=== PATIENT | female | born 1955 | race Caucasian/White ===

== ENCOUNTER 2021-11-16 06:17 | Day surgery (SDC) | payer MEDICARE, OTHER ==
[~2021-11-16] VITALS: Ht 160 cm; Wt 49.0 kg
[~2021-11-16 06:17] MED LIST: ALBU90OI INH; ASPI81CH PO; Amlodipine Bes2.5 MG PO; OMEP20ER PO
--- NOTE | 2021-11-16 06:42 | NUR ---
INSPIRATORY RHONCHI AUSCULTATED TO UPPER RIGHT LOBE, ANTERIOR AND POSTERIOR. NO WHEEZING NOTED. PATIENT STATES SHE IS NOT SOB TODAY.
--- NOTE | 2021-11-16 06:43 | NUR ---
Patient confirms NPO status and agrees with scheduled surgery. History, Chart, Medications and Allergies reviewed before start of procedure. Patient States Post-Procedure ride home has been arranged with her , Loco.
--- NOTE | 2021-11-16 08:03 | NUR ---
11/16/21 0802 Casi Edwards 2% LIDOCAINE JELLY WITH 5 DROPS SKYLAR-SYNEPHRINE 0.5% APPLIED TO BILATERAL NARES WITH COTTON TIP APPLICATOR. 2% LIDOCAINE SOLUTION SPRAYED TO OROPHARYNX USING ATOMIZATION DEVICE UNTIL GAG REFLEX GONE.
--- NOTE | 2021-11-16 08:55 | NUR ---
PATIENT SITTIN G UP IN [facility]. SUPPLEMENTAL O2 REMOVED. WILL MONITOR FOR DESATURATION. BIOX 100%. PATIENT COUGHING PRODUCTIVE COUGH. DENIES PAIN. NO C/O VERBALIZED.
--- NOTE | 2021-11-16 10:06 | NUR ---
UP TO BR WITH STEADY GAIT. STAND BY ASSIST.
--- NOTE | 2021-11-16 10:08 | NUR ---
DENIES SOB OR PAIN. NO C/O VERBALIZED. COUGHING LESS FREQUENT. RESP EVEN AND UNLABORED. BREATHING RA.
--- NOTE | 2021-11-16 10:20 | NUR ---
DENTURES RETURNED TO PATIENT.
--- NOTE | 2021-11-16 10:29 | NUR ---
GAG REFLEX PRESENT WITH TONGUE DEPRESSOR. TOLERATING SIPS OF WATER WITHOUT PROBLEMS. CALLED DR DOWELL TO CONFIRM RESTART OF MEDICATIONS, INCLUDING ASPIRIN. OK PER DR LAKE TO RESUME TODAY.
== END 2021-11-16 10:36 | disposition home or self-care (01) ==
LOC: ORSCMMR 06:17
PROVIDERS: Internal Medicine Critical Care Medicine
PROC: 0BB88ZX Excision of Left Upper Lobe Bronchus, Via Natural or Artificial Opening Endoscopic, Diagnostic (ICD-10-PCS; principal; 2021-11-16 08:00)
DX: R91.8 Other nonspecific abnormal finding of lung field (principal); C34.12 Malignant neoplasm of upper lobe, left bronchus or lung; J44.9 Chronic obstructive pulmonary disease, unspecified; F17.210 Nicotine dependence, cigarettes, uncomplicated; Z86.16 Personal history of COVID-19; Z79.82 Long term (current) use of aspirin; Z79.899 Other long term (current) drug therapy
CPT/HCPCS: 88305; 88342; A9270; J0171; J2001; J2704; J7120

== ENCOUNTER 2021-12-29 07:31 | Day surgery (SDC) | payer MEDICARE, OTHER ==
[~2021-12-29] VITALS: Ht 160 cm; Wt 49.0 kg
[~2021-12-29 07:31] MED LIST changes: +COMPAZINE10 MG PO; +IBUP600 PO; +VITAMIN D310 MC4 PO
--- NOTE | 2021-12-29 10:31 | NUR ---
up to bathroom called son gerardo to let him know she has not gone into surgery yet due to emergency surgery bumping hers.
--- NOTE | 2021-12-29 13:10 | NUR ---
1307-MEDIPORT PLACEMENT GOOD PER DR. BRADSHAW
--- NOTE | 2021-12-29 13:55 | NUR ---
Discharge instructions reviewed with patient. Patient verbalizes understanding. Copy given to patient to take home. Dressing to procedure site clean, dry, intact with no visible drainage, swelling, erythema or bruising noted. Discharged via wheelchair to private car for ride home.
== END 2021-12-29 23:32 | disposition home or self-care (01) ==
LOC: ORSCMMR 07:31 → ORD 09:00 → ORSCMMR 23:32
PROVIDERS: Surgery
PROC: B543ZZA Ultrasonography of Right Jugular Veins, Guidance (ICD-10-PCS; principal; 2021-12-29 09:00)
PROC: 05HM33Z Insertion of Infusion Device into Right Internal Jugular Vein, Percutaneous Approach (ICD-10-PCS; principal; 2021-12-29 09:00)
DX: C34.90 Malignant neoplasm of unspecified part of unspecified bronchus or lung (principal); I10 Essential (primary) hypertension; F17.210 Nicotine dependence, cigarettes, uncomplicated; K21.9 Gastro-esophageal reflux disease without esophagitis; Z86.16 Personal history of COVID-19; Z79.899 Other long term (current) drug therapy
CPT/HCPCS: 77001; C1788; J0690; J1100; J1642; J2001; J2250; J2370; J2405; J2704; J3010; J7120

== ENCOUNTER → 2022-05-10 | Outpatient (CLI) | payer BC, MEDICARE ==
[2022-05-10 15:07] LABS: Free Thyroxine 1.17 ng/dL (0.70-1.60)
[2022-05-10 15:09] LABS: Thyroid Stimulating Hormone 0.801 uIU/mL (0.360-4.800); Triiodothyronine, Free 1.96 pg/mL (2.18-3.98)
== END | disposition home or self-care (01) ==
LOC: LAB SHORT 14:05 → LAB 14:05
PROVIDERS: Nurse Practitioner
DX: C34.90 Malignant neoplasm of unspecified part of unspecified bronchus or lung (principal); R61 Generalized hyperhidrosis
CPT/HCPCS: 84439; 84443; 84481

== ENCOUNTER 2023-01-05 12:37 | Emergency (ER) | payer BC, MEDICARE ==
[~2023-01-05] VITALS: Ht 160 cm; Wt 47.6 kg
[2023-01-05 14:51] LABS: Albumin/Globulin Ratio 0.6 (0.8-1.8); Bilirubin, Total 0.6 mg/dL (0.1-1.0); Bun/Creatinine Ratio 21.5 (12.0-20.0); Calcium, Blood 7.6 mg/dL (8.5-10.1); Creatinine, Blood 0.51 mg/dL (0.40-1.00); Globulin, Blood 3.1 g/dL (2.2-4.0); Total Protein, Blood 5.1 g/dL (6.4-8.2)
[2023-01-05] MEDS ORDERED: OMEP20ER PO (18:54)
[2023-01-05 22:00] VITALS: BP 125/72
== END 2023-01-05 22:30 | disposition home or self-care (01) ==
LOC: ER 12:37
PROVIDERS: Physician Assistant
DX: D64.81 Anemia due to antineoplastic chemotherapy (principal); E87.6 Hypokalemia; T45.1X5A Adverse effect of antineoplastic and immunosuppressive drugs, initial encounter; X58.XXXA Exposure to other specified factors, initial encounter; F17.200 Nicotine dependence, unspecified, uncomplicated; Z88.5 Allergy status to narcotic agent; Z79.51 Long term (current) use of inhaled steroids; Z79.1 Long term (current) use of non-steroidal anti-inflammatories (NSAID); Z79.899 Other long term (current) drug therapy
CPT/HCPCS: 36430; 80053; 86850; 86900; 86901; 86923; 96374; 99283-25; A9270; J1642; J7030; P9016

== ENCOUNTER → 2023-01-05 | Outpatient (CLI) | payer BC, MEDICARE ==
[2023-01-05 12:04] LABS: Hematocrit 18.1 % (33.0-51.0); Mean Corpuscular HGB 32.4 pg (26.0-34.0); Mean Corpuscular HGB Conc 33.1 g/dL (31.5-36.5); Mean Corpuscular Volume 98 fL (80-100); Platelet Count 64 K/mm3 (150-400); RDW Coefficient Variation 19.4 % (11.7-14.2); RDW Standard Deviation 68.4 fL (35.1-46.3); Red Blood Cell Count 1.85 M/mm3 (3.80-5.20)
[2023-01-05 12:23] LABS: Albumin, Blood 2.1 g/dL (3.4-5.0); Albumin/Globulin Ratio 0.5 (0.8-1.8); Bilirubin, Total 0.8 mg/dL (0.1-1.0); Bun/Creatinine Ratio 19.6 (12.0-20.0); Calcium, Blood 8.1 mg/dL (8.5-10.1); Creatinine, Blood 0.56 mg/dL (0.40-1.00); Globulin, Blood 3.9 g/dL (2.2-4.0); Potassium, Blood 3.6 mmol/L (3.5-5.5)
[2023-01-05 12:25] LABS: BAND PERCENT MAN 12 % (0-8); BASOPHILS PERCENT MAN 0 % (0-2); EOSINOPHILS PERCENT MAN 0 % (0-6); LYMPHOCYTES ABSOLUTE MAN 0.21 K/mm3 (0.84-5.20); LYMPHOCYTES PERCENT MAN 8 % (21-46); MONOCYTES ABSOLUTE MAN 0.16 K/mm3 (0.16-1.47); MONOCYTES PERCENT MAN 6 % (4-13); NEUTROPHILS ABSOLUTE MAN 2.32 K/mm3 (1.96-9.15); SEG NEUTROPHILS PERCENT MAN 74 % (41-73); TOTAL CELLS COUNTED 100
== END | disposition home or self-care (01) ==
LOC: LAB 11:12 → LAB SHORT 11:12
PROVIDERS: Internal Medicine Hematology & Oncology
DX: C34.90 Malignant neoplasm of unspecified part of unspecified bronchus or lung (principal)
CPT/HCPCS: 80053; 85025

== ENCOUNTER 2023-02-25 09:10 | Inpatient (IN) | payer BC, MEDICARE ==
[~2023-02-25] VITALS: Ht 160 cm; Wt 43.9 kg
[2023-02-25] VITALS (30 sets, daily range): BP systolic 91–134; BP diastolic 48–80
[2023-02-25 10:24] LABS: Mean Corpuscular HGB 32.6 pg (26.0-34.0); Mean Corpuscular Volume 105 fL (80-100); Mean Platelet Volume 10.1 fL (9.1-12.4); NRBC ABSOLUTE 0.04 K/mm3 (0.00-0.02); NRBC Auto 0.2 /100 WBC (0.0-0.2); Platelet Count 205 K/mm3 (150-400); RDW Coefficient Variation 22.8 % (11.7-14.2); RDW Standard Deviation 87.4 fL (35.1-46.3); Red Blood Cell Count 2.76 M/mm3 (3.80-5.20)
[2023-02-25 10:39] LABS: International Normalized Ratio 1.1; Prothrombin Time Results 11.5 Sec (9.7-11.5)
[2023-02-25 10:50] LABS: BAND PERCENT MAN 10 % (0-8); BASOPHILS PERCENT MAN 0 % (0-2); EOSINOPHILS PERCENT MAN 0 % (0-6); LYMPHOCYTES PERCENT MAN 28 % (21-46); MONOCYTES ABSOLUTE MAN 1.05 K/mm3 (0.16-1.47); MONOCYTES PERCENT MAN 6 % (4-13); MYELOCYTE ABSOLUTE MAN 0.35 K/mm3 (0.00-0.00); MYELOCYTE PERCENT MAN 2 % (0-0); SEG NEUTROPHILS PERCENT MAN 54 % (41-73); TOTAL CELLS COUNTED 100
[2023-02-25 10:51] LABS: Albumin, Blood 2.4 g/dL (3.4-5.0); Albumin/Globulin Ratio 0.6 (0.8-1.8); Bilirubin, Total 0.6 mg/dL (0.1-1.0); Bun/Creatinine Ratio 21.2 (12.0-20.0); Calcium, Blood 8.6 mg/dL (8.5-10.1); Creatinine, Blood 0.66 mg/dL (0.40-1.00); Globulin, Blood 3.8 g/dL (2.2-4.0); Potassium, Blood 4.7 mmol/L (3.5-5.5); Thyroid Stimulating Hormone 2.39 uIU/mL (0.360-4.800); Total Protein, Blood 6.2 g/dL (6.4-8.2)
[2023-02-25 13:10] LABS: Influenza A, PCR NEGATIVE (NEGATIVE); Influenza B, PCR NEGATIVE (NEGATIVE); Resp Syncytial Virus, PCR NEGATIVE (NEGATIVE); SARS-Cov-2 (COVID-19) PCR, MMC NEGATIVE (NEGATIVE)
[2023-02-25 15:01] LABS: Hemoglobin 7.7 g/dL (11.5-16.0)
[2023-02-25] MEDS ORDERED: TRAM50 PO (15:19)
[2023-02-25] MEDS ORDERED: DECADRON4 M1 PO (15:20)
--- NOTE | 2023-02-25 16:36 | NUR ---
ADMIT PT ARRIVED TO ICU 7 AT 1441. PT ALERT AND ORIENTED. PT STARTED COUGHING UP A MODERATE AMT OF BRIGHT RED BLOOD MIXED WITH SPUTUM AFTER SHE WAS MOVED FROM THE ED GURNEY TO THE ICU BED. PT STATES THAT SHE HAS NOT COUGHED ANY BLOOD UP SINCE SHE HAS BEEN IN THE ED. DR. PATTON NOTIFIED. COUGHING HAD SLOWED DOWN ONCE DR. PATTON WAS AT THE BEDSIDE. PT POSITIONED ON HER L SIDE AND DR. PATTON GAVE RT ORDERS FOR TXA NEBS. PT'S SPO2 REMAINS 95% ON RA. HR 130S, SBP 90 TO LOW 100S. PT'S AT THE BEDSIDE AND WAS UPDATED BY NURSING STAFF AND DR. PATTON. CONTINUING TO MONITOR.
[2023-02-25 19:00] LABS: Hematocrit 21.7 % (33.0-51.0); Hemoglobin 6.9 g/dL (11.5-16.0); Mean Corpuscular HGB 32.4 pg (26.0-34.0); Mean Corpuscular HGB Conc 31.8 g/dL (31.5-36.5); Mean Corpuscular Volume 102 fL (80-100); Mean Platelet Volume 10.4 fL (9.1-12.4); Platelet Count 116 K/mm3 (150-400); RDW Coefficient Variation 22.3 % (11.7-14.2); RDW Standard Deviation 82.3 fL (35.1-46.3); Red Blood Cell Count 2.13 M/mm3 (3.80-5.20); White Blood Cell Count 5.46 K/mm3 (4.00-11.30)
--- NOTE | 2023-02-25 19:07 | NUR ---
ASSUMED CARE OF PT AT 1900 PT RESTING IN BED ON LEFT SIDE PER DR ORDERS. NO VISITORS IN ROOM. BEDSIDE SHIFT REPORT RECVD FROM ABDOULAYE SEGOVIA. VSS PT ON BED PRECIADO AFTER REPORT DONE. NS @50 MLS/HR AT THIS TIME. SEE FULL ASSESSMENT FOR FURTHER INFORMATION.
[2023-02-25 19:45] LABS: BAND PERCENT MAN 43 % (0-8); BASOPHILS PERCENT MAN 0 % (0-2); EOSINOPHILS PERCENT MAN 0 % (0-6); LYMPHOCYTES ABSOLUTE MAN 0.16 K/mm3 (0.84-5.20); LYMPHOCYTES PERCENT MAN 3 % (21-46); MONOCYTES ABSOLUTE MAN 0.05 K/mm3 (0.16-1.47); MONOCYTES PERCENT MAN 1 % (4-13); MYELOCYTE ABSOLUTE MAN 0.05 K/mm3 (0.00-0.00); MYELOCYTE PERCENT MAN 1 % (0-0); NEUTROPHILS ABSOLUTE MAN 5.18 K/mm3 (1.96-9.15); SEG NEUTROPHILS PERCENT MAN 52 % (41-73); TOTAL CELLS COUNTED 100
[2023-02-25 21:57] LABS: Hematocrit 27.8 % (33.0-51.0)
[2023-02-26] VITALS (25 sets, daily range): BP systolic 98–150; BP diastolic 56–82
[2023-02-26 01:21] LABS: Hematocrit 26.9 % (33.0-51.0); Hemoglobin 8.8 g/dL (11.5-16.0); Mean Corpuscular HGB 31.9 pg (26.0-34.0); Mean Corpuscular HGB Conc 32.7 g/dL (31.5-36.5); Mean Corpuscular Volume 98 fL (80-100); Mean Platelet Volume 10.1 fL (9.1-12.4); Platelet Count 102 K/mm3 (150-400); RDW Coefficient Variation 21.5 % (11.7-14.2); RDW Standard Deviation 73.4 fL (35.1-46.3); Red Blood Cell Count 2.76 M/mm3 (3.80-5.20); White Blood Cell Count 5.09 K/mm3 (4.00-11.30)
[2023-02-26 01:44] LABS: Albumin, Blood 1.9 g/dL (3.4-5.0); Albumin/Globulin Ratio 0.6 (0.8-1.8); Bilirubin, Total 0.4 mg/dL (0.1-1.0); Bun/Creatinine Ratio 22.2 (12.0-20.0); Calcium, Blood 7.7 mg/dL (8.5-10.1); Creatinine, Blood 0.54 mg/dL (0.40-1.00); Globulin, Blood 3.4 g/dL (2.2-4.0); Potassium, Blood 3.6 mmol/L (3.5-5.5); Total Protein, Blood 5.3 g/dL (6.4-8.2)
[2023-02-26 02:16] LABS: BAND PERCENT MAN 5 % (0-8); BASOPHILS PERCENT MAN 0 % (0-2); EOSINOPHILS PERCENT MAN 0 % (0-6); LYMPHOCYTES ABSOLUTE MAN 0.35 K/mm3 (0.84-5.20); LYMPHOCYTES PERCENT MAN 7 % (21-46); MONOCYTES ABSOLUTE MAN 0.25 K/mm3 (0.16-1.47); MONOCYTES PERCENT MAN 5 % (4-13); NEUTROPHILS ABSOLUTE MAN 4.47 K/mm3 (1.96-9.15); SEG NEUTROPHILS PERCENT MAN 83 % (41-73); TOTAL CELLS COUNTED 100
--- NOTE | 2023-02-26 05:54 | NUR ---
END OF SHIFT SUMMARY PT RESTED ON LEFT SIDE ALL SHIFT WITH INTERMITENT USE OF BED PRECIADO. HEAD OF BED RAISED AT ALL TIMES. MINIMAL COUGHING WITH SCANT PINK TINGED SPUTUM PRESENT. PT STATES " STUFF I AM COUGHING UP IS MUCH CLEARER THAN BEFORE". PT DIAPHORETIC SPIRATICALLY THROUGHOUT THE NIGHT, PT REPORTS THIS IS BASELINE FOR HER. AFEBRILE WITH NO OTHER ISSUES. VSS. SIGNIFICANT DECREASE TO BP AND HR AFTER 1 UNIT PRBC INFUSED. NO OTHER ACUTE CHANGES TO REPORT AT THIS TIME. WILL CONTINUE TO MONITOR PT UNTIL AM RN IS GIVEN REPORT.
[2023-02-26 08:34] LABS: Hematocrit 31.1 % (33.0-51.0); Hemoglobin 10.3 g/dL (11.5-16.0)
--- NOTE | 2023-02-26 11:59 | NUR ---
REASSESSMENT PT REMAINS ALERT AND ORIENTED. SHE SAT UP IN THE CHAIR THIS MORNING FOR A FEW HOURS AND NOW IS BACK IN BED NAPPING. PT STARTS COUGHING WITH ACTIVITY, BRINGING UP A MODERATE AMT OF BLOOD MIXED WITH SPUTUM AT FIRST THAT TURNS MORE CLEAR SHE COUGHS MORE UP. SHE COUGHED UP 1 SMALL CLOT, ABOUT 0.5-1 CM AROUND. CONTINUES ON RA. SR WITH RATE IN THE 90S AT REST, UP TO 1 TEENS WITH ACTIVITY. BP STABLE. GETTING UP TO COMMODE TO VOID. PT'S CAME BY AND WAS UPDATED. CONTINUING TO MONITOR.
[2023-02-26 14:25] LABS: Hematocrit 30.4 % (33.0-51.0)
--- NOTE | 2023-02-26 17:01 | NUR ---
SHIFT SUMMARY PT HAS GONE BETWEEN THE CHAIR AND LAYING IN BED ON HER LEFT SIDE TODAY. SHE IS COUGHING LESS THIS EVENING, BUT WHEN SHE DOES COUGH IT IS STILL RED MIXED WITH SPUTUM. CONTINUES ON RA WITH SPO2 ABOVE 90%. LUNGS COARSE. SINUS TACHY ITH RATE IN THE LOW 100S. BP STABLE. GETTING UP TO THE COMMODE TO VOID. ATE BREAKFAST, BUT ONLY ATE SOME PEACHES AT LUNCH. PT'S UPDATED BY NURSING STAFF.
[2023-02-26 20:35] LABS: Hematocrit 27.1 % (33.0-51.0); Hemoglobin 8.8 g/dL (11.5-16.0)
[2023-02-27] VITALS (15 sets, daily range): BP systolic 121–161; BP diastolic 62–89
--- NOTE | 2023-02-27 06:00 | NUR ---
PT RESTED INTERMITTANTLY DURING NOC, HAS CONT TO DENY SOB AND REMAINS ON RA. CONT TO LAY ON L SIDE. COUGH IS OCCASIONAL, MUCH LESS SECRETIONS, CONT BLOOD TINGED, PT ABLE TO SELF SXN. CONT SR, VSS. PT W SB ASSIST TO BSC TO VOID, ONLY SM AMTS, DENIES PAIN/BURNING W URINATION. CONT TO MONITOR HGB. REPORT TO DAYSHIFT.
[2023-02-27 06:11] LABS: Hematocrit 25.5 % (33.0-51.0); Hemoglobin 8.3 g/dL (11.5-16.0); Mean Corpuscular HGB 31.8 pg (26.0-34.0); Mean Corpuscular HGB Conc 32.5 g/dL (31.5-36.5); Mean Corpuscular Volume 98 fL (80-100); Mean Platelet Volume 10.5 fL (9.1-12.4); Platelet Count 119 K/mm3 (150-400); RDW Coefficient Variation 22.2 % (11.7-14.2); RDW Standard Deviation 76.1 fL (35.1-46.3); Red Blood Cell Count 2.61 M/mm3 (3.80-5.20); White Blood Cell Count 7.71 K/mm3 (4.00-11.30)
[2023-02-27 06:32] LABS: Albumin, Blood 1.9 g/dL (3.4-5.0); Albumin/Globulin Ratio 0.5 (0.8-1.8); Bilirubin, Total 0.2 mg/dL (0.1-1.0); Bun/Creatinine Ratio 38.7 (12.0-20.0); Calcium, Blood 8.3 mg/dL (8.5-10.1); Creatinine, Blood 0.52 mg/dL (0.40-1.00); Globulin, Blood 3.5 g/dL (2.2-4.0); Potassium, Blood 3.7 mmol/L (3.5-5.5); Total Protein, Blood 5.4 g/dL (6.4-8.2)
[2023-02-27 06:53] LABS: BAND PERCENT MAN 12 % (0-8); BASOPHILS PERCENT MAN 0 % (0-2); EOSINOPHILS PERCENT MAN 0 % (0-6); LYMPHOCYTES ABSOLUTE MAN 0.38 K/mm3 (0.84-5.20); LYMPHOCYTES PERCENT MAN 5 % (21-46); MONOCYTES PERCENT MAN 4 % (4-13); NEUTROPHILS ABSOLUTE MAN 7.01 K/mm3 (1.96-9.15); SEG NEUTROPHILS PERCENT MAN 79 % (41-73); TOTAL CELLS COUNTED 100
--- NOTE | 2023-02-27 07:00 | NUR ---
ASSUME CARE: I have assumed care of this patient.
[2023-02-27 10:32] LABS: Hematocrit 28.4 % (33.0-51.0); Hemoglobin 9.1 g/dL (11.5-16.0)
--- NOTE | 2023-02-27 13:29 | NUR ---
TRANSFER: Report given to PCU 20 RN. Pt to be taken over in wheelchair by ATTENDANT HONOR BAR. Pt was just medicated with ultram for port site pain.
--- NOTE | 2023-02-27 13:57 | NUR ---
ASSUME CARE: PT ARRIVED IN THE ROOM FROM ICU 7 REPORT RECEIVED FROM NAOMI SEGOVIA, ACCOMPANIED BY PCT VIA WHEELCHAIR. DAUGHTER IN LAW A TTHE BEDSIDE DURING TRANSFER. PT ABLE TO STAND AND TRANSFER TO THE CHAIR. SUCTION SET UP AT THE BEDSIDE. CALL LIGHTS IN REACH WILL CONTINUE TO MONITOR PT UNTIL END OF SHIFT
--- NOTE | 2023-02-27 18:40 | NUR ---
PT SUMMARY: NO ACUTE CHANGE FOR THE REST OF THE SHIFT VITALS HRR SR 80-90'S, SATS ABOVE 95% ON RA, SBP 140'S AFERBILE. PT HAD X2 SMALL AMOUNT OF HEMOPTYSIS WITH MUCUS SPECIMEN SENT TO LAB. HAS SOME CHEST PAIN CLOSE TO MEDIPORT MEDICATED PER EMAR. NS RUNNING TKO VIA MEDIPORT. SBA FOR TRANSFERS TO USE BEDSIDE COMMODE. SMALL APPETITE. PT HAS BEEN LAYING ON LEFT SIDE WHEN IN BED. NO OTHER ISSUES REPORTED. PT HAS BEEN CALLING APPROPRIATELY. CALL LIGHTS IN REACH WILL REPORT TO ONCOMING SHIFT
[2023-02-28 03:13] VITALS: BP 126/77
[2023-02-28 06:15] LABS: BASOPHILS ABSOLUTE AUTO 0.02 K/mm3 (0.00-0.23); BASOPHILS PERCENT AUTO 0 % (0-2); EOSINOPHILS PERCENT AUTO 0 % (0-6); Hematocrit 25.3 % (33.0-51.0); Hemoglobin 8.2 g/dL (11.5-16.0); IMMATURE GRAN ABSOLUTE AUTO 0.18 K/mm3 (0.00-0.10); IMMATURE GRAN PERCENT AUTO 2 % (0-1); LYMPHOCYTES ABSOLUTE AUTO 0.55 K/mm3 (0.84-5.20); LYMPHOCYTES PERCENT AUTO 6 % (21-46); MONOCYTES ABSOLUTE AUTO 0.21 K/mm3 (0.16-1.47); MONOCYTES PERCENT AUTO 2 % (4-13); Mean Corpuscular HGB 31.9 pg (26.0-34.0); Mean Corpuscular HGB Conc 32.4 g/dL (31.5-36.5); Mean Corpuscular Volume 98 fL (80-100); Mean Platelet Volume 10.6 fL (9.1-12.4); NEUTROPHILS ABSOLUTE AUTO 7.78 K/mm3 (1.96-9.15); NEUTROPHILS PERCENT AUTO 89 % (41-73); NRBC ABSOLUTE 0.02 K/mm3 (0.00-0.02); NRBC Auto 0.2 /100 WBC (0.0-0.2); Platelet Count 124 K/mm3 (150-400); RDW Coefficient Variation 21.9 % (11.7-14.2); RDW Standard Deviation 77.4 fL (35.1-46.3); Red Blood Cell Count 2.57 M/mm3 (3.80-5.20); White Blood Cell Count 8.74 K/mm3 (4.00-11.30)
--- NOTE | 2023-02-28 06:20 | NUR ---
SHIFT SUMMARY A/Ox4 AND COOPERATIVE WITH CARE. ANSWERS QUESTIONS APPROPRIATELY AND ABLE TO MAKE HER NEEDS KNOWN. NO ACUTE EVENTS OVERNIGHT FOR PT WAS ABLE TO SLEEP T/O MOST OF THE SHIFT. CARDIAC, REMAINS IN SR 60-80's WITH NO REPORTS OF CP OR PRESSURE T/O THE NIGHT. PT's HR DID DROP INTO THE 40-50's WHEN SLEEPING, BUT WOULD QUICKLY RECOVER WHEN AWAKE. DENIED ANY DIZZINESS WHEN AMBULATING. RESPIRATORY, MAINTAINS SPO2 >95% ON RA WITH NO REPORTS OF SOB OR DYSPNEA WHILE AT REST. CONTINUES TO COUGH UP SOME BLOODY SPUTUM WITH OVERALL WEAK COUGH STILL NOTED. GI/, ABLE TO AMBULATE TO [facility]IA ONE STAFF ASSIST. VOIDING CLEAR/YELLOW URINE WITHOUT DIFFICULTY. NO BM FOR THIS SHIFT. PT ABLE TO REPOSITION HERSELF WITH MINIMAL ASSISTANCE FROM STAFF. PAIN MANAGED WITH PRN PAIN MEDICATIONS. ASSESSED PT FOR RISKS OF ANY IGNITION SOURCES WELL BEHAVIORS FOR INCREASED RISKS OF FIRE DANGER. PT EDUCATED ON COMMON SOURCES OF IGNITION WELL NEED TO KEEP A SAFE ENVIRONMENT. PT VOICED UNDERSTANDING. NO NEW ORDERS AT THIS TIME, WILL REPORT TO ONCOMING RN. MEGAN FREEDMAN OF THIS NOTE
[2023-02-28 06:39] LABS: Albumin/Globulin Ratio 0.6 (0.8-1.8); Bilirubin, Total 0.4 mg/dL (0.1-1.0); Bun/Creatinine Ratio 33.4 (12.0-20.0); Calcium, Blood 8.5 mg/dL (8.5-10.1); Creatinine, Blood 0.57 mg/dL (0.40-1.00); Globulin, Blood 3.3 g/dL (2.2-4.0); Potassium, Blood 3.6 mmol/L (3.5-5.5); Total Protein, Blood 5.3 g/dL (6.4-8.2)
[2023-02-28 07:01] VITALS: BP 149/84
--- NOTE | 2023-02-28 07:37 | NUR ---
Received report from Jhony SEGOVIA. Patient just finishing bath andf linen change. She is alert and oriented and is able to communicate her needs. She is on RA and sats >90%. She is a 1 person SBA to bedside cammode. He has suction in hand and self suctions sputum that has blood tinged in moderate amounts. She denies any nausea or vomiting. She has NS at 10 ml/hr to right chest mediport and dressing intact. Gave her cup of coffee per request. She denies any other current needs.
--- NOTE | 2023-02-28 11:30 | NUR ---
Patient remains alert and oriented and able to communicate her needs. She calls appropriately with call light. She remains on RA and sats >90%. Her HR goes to 120's when UOB. She has been UOB several times to bedside cammode and tolerated well. Dr Galvan stated she will be discharged today amd Wendy will help with transitition. Patient continues to deny any pain. She continues to infuse through mediport right upper chest of NS at 10ml/hr.
[2023-02-28 12:00] VITALS: BP 178/104
[2023-02-28] MEDS ORDERED: MOME220I INH (12:47)
[2023-02-28] MEDS ORDERED: LEVO750 PO (12:47)
--- NOTE | 2023-02-28 14:14 | NUR ---
Patient had mediport deaccessed per protocol at 1345. Dr Vazquez has been inn to assess patient.Aid helpped her get dressed and removed monitor leads. She received written discharge instructions and reveiwed appts. and medications with patient and family. He r belongings were gathered and she was taken out in wheel chair to [facility] and went home.
[2023-03-03 14:12] LABS: ASPERGILLUS FLAVUS Negative (Neg:<1:1); ASPERGILLUS FUMIGATUS Negative (Neg:<1:1); ASPERGILLUS NIGER Negative (Neg:<1:1)
== END 2023-02-28 14:01 | disposition home health service (06) | DRG 180 ==
LOC: ER 09:10 → ICUE 14:07 → PCU 14:07 → ICUE 14:26 → PCU 02-27 13:50
PROVIDERS: Emergency Medicine; Internal Medicine Critical Care Medicine; Student in an Organized Health Care Education/Training Program; ADMIT Hospitalist
PROC: 30233N1 Transfusion of Nonautologous Red Blood Cells into Peripheral Vein, Percutaneous Approach (ICD-10-PCS; principal; 2023-02-25)
DX: C34.12 Malignant neoplasm of upper lobe, left bronchus or lung (principal); J18.9 Pneumonia, unspecified organism; J96.21 Acute and chronic respiratory failure with hypoxia; R04.2 Hemoptysis; D84.9 Immunodeficiency, unspecified; J44.1 Chronic obstructive pulmonary disease with (acute) exacerbation; J44.0 Chronic obstructive pulmonary disease with (acute) lower respiratory infection; R04.89 Hemorrhage from other sites in respiratory passages; T45.1X5A Adverse effect of antineoplastic and immunosuppressive drugs, initial encounter; T66.XXXA Radiation sickness, unspecified, initial encounter; Y84.2 Radiological procedure and radiotherapy as the cause of abnormal reaction of the patient, or of later complication, without mention of misadventure at the time of the procedure; I95.9 Hypotension, unspecified; D63.0 Anemia in neoplastic disease; R00.0 Tachycardia, unspecified; Z88.5 Allergy status to narcotic agent; Z11.52 Encounter for screening for COVID-19
CPT/HCPCS: 0241U; 36430; 71045; 71250; 80053; 83880; 84145; 84443; 84484; 85014; 85018; 85025; 85610; 85730; 86606; 86850; 86900; 86901; 86923; 93005; 93010; 94640; 94664; 94760; 94762; 96361; 96374; 97162; 97165; 97530; 99285-25; A9270; J0696; J1642; J2185; J2930; J7030; J7040; J7050; P9016